=== PATIENT | female | born 1930 | race Caucasian/White ===

== ENCOUNTER 2020-10-08 01:03 | Observation (INO) ==
[2020-10-08] MEDS ORDERED: Perflutren Lipid Microsphere 1.3 ML in 0.9 % Sodium Chloride 8.7 ML IVP PRN (02:17)
[2020-10-08] MEDS ORDERED: Ondansetron 4 MG/2 ML VIAL IVP PRN (02:20)
[2020-10-08] MEDS ORDERED: Ibuprofen 400 MG TABLET PO PRN (02:20)
[2020-10-08] MEDS ORDERED: Melatonin 3 MG TABLET PO PRN (02:20)
[2020-10-08] MEDS ORDERED: Naloxone 0.4 MG/ML INJ IVP PRN (02:20)
[2020-10-08] MEDS ORDERED: *HR* Heparin 5,000 UNIT/ML VIAL IVP ONE (02:24)
[2020-10-08] MEDS ORDERED: *HR* Heparin 5,000 UNIT/ML VIAL IVP PRN ×2 (02:24)
[2020-10-08] MEDS ORDERED: DilTIAZem 50 MG/50 ML IV.SOLN IVC SCH (02:30)
[2020-10-08] MEDS ORDERED: 0.9 % Sodium Chloride 1,000 ML IVC SCH (02:30)
[2020-10-08] MEDS: Heparin 25,000UNIT/250ML 1/2NS 25,000 UNIT/250 ML IV.SOLN IVC SCH (03:03)
[2020-10-08 03:04] LABS: Basophils % 0.6 %; Eosinophils % 0.6 %; Hematocrit 38.9 % (35.3-44.9); Hemoglobin 12.8 g/dL (11.5-15.4); Immature Granulocytes % 0.3 % (0-4); Lymphocytes # 1.4 K/mcL (0.6-4.6); Lymphocytes % 19.3 %; Mean Corpuscular HGB Conc 32.9 g/dL (31.6-35.5); Mean Corpuscular Hemoglobin 31.2 pg (28.0-33.3); Mean Corpuscular Volume 94.9 fL (83.0-100.0); Mean Platelet Volume 11.4 fL (9.4-12.4); Monocytes # 0.8 K/mcL (0.0-1.3); Monocytes % 11.9 %; Neutrophils # 4.7 K/mcL (1.6-8.9); Platelet Count 190 K/mcL (140-400); Red Cell Distribution Width 13.7 % (11.5-14.5); Segmented Neutrophils % 67.3 %
[2020-10-08 03:05] LABS: Hematocrit 39.2 % (35.3-44.9); Hemoglobin 12.9 g/dL (11.5-15.4); Mean Corpuscular HGB Conc 32.9 g/dL (31.6-35.5); Mean Corpuscular Hemoglobin 31.3 pg (28.0-33.3); Mean Corpuscular Volume 95.1 fL (83.0-100.0); Mean Platelet Volume 11.2 fL (9.4-12.4); Platelet Count 186 K/mcL (140-400); Red Blood Count 4.12 M/mcL (3.82-4.97); Red Cell Distribution Width 13.8 % (11.5-14.5)
[2020-10-08 03:12] LABS: INR 1.2; Prothrombin Time 13.3 Seconds (9.4-12.1)
[2020-10-08 03:14] LABS: Heparin anti-factor XA UFH < 0.04 IU/mL (0.30-0.70)
[2020-10-08 03:24] LABS: Alanine Aminotransferase 7 Units/L (7-52); Albumin 3.2 g/dL (3.5-5.7); Albumin/Globulin Ratio 1.6 (1.1-2.2); Alkaline Phosphatase 41 Units/L (34-104); Aspartate Amino Transferase 14 Units/L (13-39); BUN/Creatinine Ratio 13 (6-26); Bilirubin,Total 0.6 mg/dL (0.3-1.0); Blood Urea Nitrogen 12 mg/dL (8-23); Calcium 8.2 mg/dL (8.6-10.3); Carbon Dioxide 23 mEq/L (23-29); Chloride 109 mEq/L (98-107); Glucose 73 mg/dL (70-105); Osmolality,Calculated 288 (280-300); Potassium 3.7 mEq/L (3.5-5.1); Sodium 140 mEq/L (136-145); Total Protein 5.2 g/dL (6.4-8.9); eGFR For African Americans > 60 (> 60); eGFR For Non-African Americans 57 (> 60)
[2020-10-08 04:49] LABS: Thyroid Stimulating Hormone 1.137 mcIU/mL (0.340-5.600)
[2020-10-08] MEDS: Aspirin Enteric Coated 81 MG Tablet PO SCH (08:30)
[2020-10-08] MEDS: atenoloL 25 MG TABLET PO SCH (09:09)
[2020-10-08] MEDS: lisinopriL 10 MG TABLET PO SCH (09:09)
[2020-10-08] MEDS ORDERED: *HR* OxyCODONE Immed Rel 5 MG TABLET PO PRN (14:48)
[2020-10-09] MEDS: Heparin 25,000UNIT/250ML 1/2NS 25,000 UNIT/250 ML IV.SOLN IVC SCH (04:12)
[2020-10-09] MEDS: lisinopriL 10 MG TABLET PO SCH (08:44)
[2020-10-09] MEDS: Aspirin Enteric Coated 81 MG Tablet PO SCH (08:44)
[2020-10-09] MEDS: atenoloL 25 MG TABLET PO SCH (08:44)
[2020-10-09] MEDS ORDERED: Cholecalciferol (D-3) 1,000 UNIT (25MCG) TABLET PO SCH (09:00)
[2020-10-09] MEDS ORDERED: Anastrozole 1 MG TABLET PO SCH (09:00)
[2020-10-09 10:59] VITALS: BP 148/58
[2020-10-09] MEDS ORDERED: *HR* Rivaroxaban 10 MG TABLET PO SCH (12:47)
== END 2020-10-09 14:48 | disposition home or self-care (01) ==
LOC: 2ANU → SUATTDRO 01:03 → 2ANU 01:29
PROVIDERS: ADMIT Internal Medicine; ATTEND Internal Medicine